=== PATIENT | male | born 1950 | race Caucasian/White ===

== ENCOUNTER → 2016-10-14 | Day surgery (SDC) | payer MEDICARE, BC ==
[~2016-10-14] MED LIST: ASPIRIN81 M2 PO; LIPITOR20 MG PO; POTASSIUM99 M2 PO
--- NOTE | ~2016-10-14 | OR ---
Unit #: [id number] #: [id number] Patient: ALCIRA MONTANO [id number] [address] [address] [id number] O MR#: [id number] NAME: ALCIRA MONTANO. ROOM: Date of Procedure: 10/14/2016 Admission Date: 10/14/2016 Surgeon: Larry Hamilton M.D. : 1950 Attending Physician: Larry Hamilton M.D. Referring Physician: Larry Hamilton M.D. Primary Care Physician: Rashaad Barreto M.D. OPERATIVE REPORT PREOPERATIVE DIAGNOSIS Screening colonoscopy. POSTOPERATIVE DIAGNOSIS Screening colonoscopy. PROCEDURE PERFORMED Colonoscopy to cecum. ANESTHESIA Monitored anesthesia care. FINDINGS The patient was found to have a normal colonoscopy other than having a 5 mm polyp excised at 25 cm and 5 cm with electrocautery snare with good hemostasis. SPECIMENS Sent to Pathology. COMPLICATIONS None apparent. CONDITION The patient tolerated the procedure well. INDICATIONS FOR PROCEDURE The patient is a 66-year-old white male, who presents at this time for screening colonoscopy. DESCRIPTION OF PROCEDURE After obtaining informed consent, the patient was brought to the endoscopy suite and after adequate monitored anesthesia care, had the colonoscope placed through the anus and slowly advanced to the level of the cecum without difficulty with the lumen always in view. The cecum was normal as was the ileocecal valve. The ascending colon was normal as was the hepatic flexure, transverse colon, splenic flexure, and descending colon. In the sigmoid colon, no diverticula were seen. However, the patient had a 5 mm polyp found at 25 cm. It was excised completely with electrocautery snare, retrieved with a mucus trap, and sent to Pathology. There was good hemostasis. The remaining portion of the sigmoid colon, rectosigmoid, and upper rectum were normal. At 5 cm, a small 4 to 5 mm Unit #: [id number] #: [id number] Patient: ALCIRA MONTANO polyp was found. It was excised completely with the electrocautery snare, retrieved with a mucus trap, and sent to Pathology. There was good hemostasis. On retroflexing in the rectum to the anorectal junction, the patient was found to have no abnormality. The scope was removed without difficulty. The patient tolerated the procedure well and went from the endoscopy suite to recovery area in stable condition. RECOMMENDATIONS High-fiber diet, lots of liquids, tucks or wipes p.r.n. Call on Thursday for pathology. Dictated by... Tabitha Magana/sg TD: 10/15/2016 02:00 JOB #: [id number] CC: [facility] OPERATIVE REPORT Page 1 of 1 X Larry Hmailton MD X PROCEDURE OPERATIVE NOTE
== END | disposition home or self-care (01) ==
LOC: COPS 06:04
DX: Z12.11 Encounter for screening for malignant neoplasm of colon (principal); K63.5 Polyp of colon; D12.6 Benign neoplasm of colon, unspecified; K21.9 Gastro-esophageal reflux disease without esophagitis; M54.9 Dorsalgia, unspecified; M25.50 Pain in unspecified joint; Z79.82 Long term (current) use of aspirin; Z79.899 Other long term (current) drug therapy; Z85.118 Personal history of other malignant neoplasm of bronchus and lung
CPT/HCPCS: 88305; J2250